=== PATIENT | female | born 1950 | race Caucasian/White ===

== ENCOUNTER → 2018-05-04 | Outpatient (CLI) | payer BC ==
[~2018-05-04] MED LIST: ANTARA90 MG PO; CIPROFLOXACIN500 M3 PO; CRESTOR10 MG PO; FISHOIL; HCTZ; NORCO 5-325 TA1 EACH PO; VALIUM2 MG PO; VICODIN 5-5001 EACH PO
== END ==
LOC: M.RAD 15:31
DX: Z12.31 Encounter for screening mammogram for malignant neoplasm of breast (principal); R05 Cough

== ENCOUNTER → 2019-08-20 | Outpatient (CLI) | payer MEDICARE, OTHER | LOC: M.RAD 08-13 16:58 | PROVIDERS: ATTEND Family Medicine | DX: Z12.31 Encounter for screening mammogram for malignant neoplasm of breast (principal); R05 Cough; I70.0 Atherosclerosis of aorta; N91.2 Amenorrhea, unspecified; Z78.0 Asymptomatic menopausal state ==

== ENCOUNTER → 2020-12-09 | Outpatient (CLI) | payer MEDICARE, OTHER | LOC: M.RAD 12:56 | PROVIDERS: ATTEND Obstetrics & Gynecology Gynecology | DX: Z12.31 Encounter for screening mammogram for malignant neoplasm of breast (principal) ==